=== PATIENT | male | born 1945 | race Caucasian/White ===

== ENCOUNTER 2016-06-26 11:25 | Outpatient (CLI) | payer MEDICARE, OTHER ==
--- NOTE | 2016-06-26 14:28 | Diagnostic Imaging Report ---
MANDY STARKEY [facility] [address] [facility] [address] [address] Report Submission Date: Jun 26, 2016 12:51:28 PM CDT Patient Study Name: ANYA CHAMPION Date: Jun 26, 2016 11:40:19 AM CDT Modality Type: CR Gender: M Description: UPPER EXTREMITY : 47 Institution: [facility] Physician: MANDY STARKEY Right hand 3 views History: Pain and swelling after fall Findings: A nondisplaced oblique mid 4th metacarpal shaft fracture is observed. A mildly displaced longitudinally oriented fracture extends from the mid 5th metacarpal shaft through the ulnar aspect of the 5th metacarpal head. Diffuse osteopenia is observed. Impression: Nondisplaced 4th metacarpal shaft fracture and mildly displaced mid to distal 5th metacarpal fracture. Electronically signed on Jun 26, 2016 12:51:28 PM CDT by: Josh HINOJOSA
--- NOTE | 2016-06-26 14:29 | Diagnostic Imaging Report ---
MANDY STARKEY [facility] [address] [facility] [address] [address] Report Submission Date: Jun 26, 2016 12:48:53 PM CDT Patient Study Name: ANYA CHAMPION Date: Jun 26, 2016 11:50:03 AM CDT Modality Type: CR Gender: M Description: LOWER EXTREMITY : 47 Institution: [facility] Physician: MANDY STARKEY Right foot 3 views History: Lateral pain and swelling after fall Findings: A minimally distracted intra-articular 5th metatarsal base fracture is present. Diffuse right foot soft tissue swelling, osteopenia, and dorsal and plantar heel spurs are present. Impression: Distracted 5th metatarsal base fracture. Electronically signed on Jun 26, 2016 12:48:53 PM CDT by: Josh HINOJOSA
== END 2016-06-26 11:26 ==
LOC: RAD 11:25
PROVIDERS: ATTEND Family Medicine
DX: M79.641 Pain in right hand (principal); M79.671 Pain in right foot
CPT/HCPCS: 73130; 73630

== ENCOUNTER 2017-04-16 13:57 | Outpatient (CLI) | payer MEDICARE, OTHER ==
--- NOTE | 2017-04-16 22:25 | Diagnostic Imaging Report ---
MANDY STARKEY [facility] [address] [facility] [address] 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 History: COUGH (Hx) / COUGH (DICOM Hx) / COUGH (Pt comments) Comparison exam: None provided. Findings: PA lateral chest demonstrate a prominent cardiac and mediastinal silhouette. Vascular calcifications involving the aortic arch. Mild right hilar haziness/fullness. No peripheral infiltrate. No blunting of the costophrenic margins. Osseous structures are appropriate for age. Impression: Mild right hilar fullness - infiltrate versus vascular congestion. No effusion. Electronically signed on Apr 16, 2017 2:32:09 PM MAILROOM MESSENGER by: Brian HINOJOSA
== END 2017-04-16 14:00 ==
LOC: RAD 13:57
PROVIDERS: ATTEND Family Medicine
DX: R05 Cough (principal)
CPT/HCPCS: 71020

== ENCOUNTER 2017-04-19 09:16 | Outpatient (CLI) | payer MEDICARE, OTHER ==
[2017-04-19 10:39] LABS: eGFR (African) > 60; eGFR (Non-African) > 60
--- NOTE | 2017-04-19 19:30 | Diagnostic Imaging Report ---
MANDY STARKEY [facility] [address] [facility] [address] [place], [place]. 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 History: CXR, COUGH SINCE AUGUST OF 2016, WORSENING IN THE LAST MONTH, PRIOR CXR FROM 04/16/17 (Hx) / COUGH (DICOM Hx) / COUGH (Pt comments) Comparison exam: 16 April 2017 Findings: PA lateral chest demonstrate a prominent cardiac and mediastinal silhouette. Vascular calcifications involving the aortic arch. Mild right hilar fullness without change. On lateral view there is some new mild indistinctness involving the left diaphragmatic margin. Osseous structures are appropriate for age. Impression: New mild left lung base hazy infiltrate. No gross effusion. Follow up as clinically warranted. Electronically signed on Apr 19, 2017 10:36:54 AM TRUCK DRIVING INSTRUCTOR by: Brian HINOJOSA
--- NOTE | 2017-04-22 07:12 | Diagnostic Imaging Report ---
MANDY STARKEY [facility] [address] [facility] [address] [place], [place]. 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 Bilateral pleural effusions with adjacent mild compressive atelectasis. Patchy parenchymal infiltrates involving the remaining aerated lung glaser. Mild interstitial fullness involving the regions of the fissures. No evidence for spiculated lesion or suspicious nodular density. Anterior mediastinum and chitra demonstrate scattered lymph nodes - largest appear to be within the prevascular and free carinal regions measuring 1 to 1.5 cm diameter. Thoracic aorta demonstrates peripheral atherosclerotic disease. No aneurysm. Cardiac silhouette not enlarged. No pericardial effusion. Vascular calcifications. Probable left and right thyroid lobe cysts. No other lower neck gross abnormalities. Gallstones layering within the gallbladder. No other acute upper abdominal abnormalites. Degenerative spurring of the thoracic vertebral bodies. Articular degenerative changes. Impression: Bilateral effusions associated with patchy interstitial infiltrates. Mildly prominent mediastinal lymph nodes. No evidence for thoracic aortic aneurysm or dissection. Probable thyroid lobe cysts. Gallstones. Electronically signed on Apr 20, 2017 8:52:00 AM LOADER HELPER SORTING YARD by: Brian HINOJOSA
== END 2017-04-19 09:17 ==
LOC: RAD 09:16
PROVIDERS: ATTEND Family Medicine
DX: R05 Cough (principal)
CPT/HCPCS: 36415; 71020; 71270; 82565; Q9967

== ENCOUNTER 2017-05-21 10:30 | Outpatient (CLI) | payer MEDICARE, OTHER | END 2017-05-21 10:31 | LOC: CARD 10:30 | PROVIDERS: ATTEND Internal Medicine Cardiovascular Disease | DX: I35.0 Nonrheumatic aortic (valve) stenosis (principal); R06.00 Dyspnea, unspecified; E78.5 Hyperlipidemia, unspecified; I10 Essential (primary) hypertension; E11.9 Type 2 diabetes mellitus without complications; E66.9 Obesity, unspecified; G47.30 Sleep apnea, unspecified | CPT/HCPCS: G0463 ==

== ENCOUNTER 2017-06-11 15:18 | Outpatient (CLI) | payer MEDICARE, OTHER ==
--- NOTE | 2017-06-11 15:58 | Diagnostic Imaging Report ---
MANDY STARKEY [facility] [address] [facility] [address] Report Submission Date: Jun 11, 2017 3:45:10 PM CDT Patient Study Name: ANYA CHAMPION Date: Jun 11, 2017 3:23:10 PM CDT Modality Type: DX Gender: M Description: CHEST : 47 Institution: [facility] Physician: MANDY STARKEY Examination: PA and lateral chest. History: Evaluate lung glaser. DYSPNEA, COUGH (Hx) Comparison exam: None provided. Findings: PA lateral chest demonstrate a normal cardiac and mediastinal silhouette. Vascular calcifications involving the aortic arch. Elevated right hemidiaphragm. No focal infiltrate. Anterior linear scarring. No blunting of the costophrenic margins. Osseous structures are appropriate for age. Impression: No acute appearing pulmonary process. Electronically signed on Jun 11, 2017 3:45:10 PM CDT by: Brian HINOJOSA
== END 2017-06-11 15:20 ==
LOC: RAD 15:18
PROVIDERS: ATTEND Family Medicine
DX: R06.09 Other forms of dyspnea (principal)
CPT/HCPCS: 71046

== ENCOUNTER 2017-07-02 09:34 | Outpatient (CLI) | payer MEDICARE, OTHER ==
[2017-07-02 10:34] LABS: eGFR (Non-African) > 60
== END 2017-07-02 09:35 ==
LOC: LAB 09:34
PROVIDERS: ATTEND Family Medicine
DX: R60.0 Localized edema (principal)
CPT/HCPCS: 36415; 80048

== ENCOUNTER 2017-07-02 11:14 | Outpatient (CLI) | payer MEDICARE, OTHER | END 2017-07-02 11:15 | LOC: CARD 11:14 | PROVIDERS: ATTEND Internal Medicine Cardiovascular Disease | DX: I50.9 Heart failure, unspecified (principal); I35.0 Nonrheumatic aortic (valve) stenosis; E78.5 Hyperlipidemia, unspecified; I10 Essential (primary) hypertension; E11.9 Type 2 diabetes mellitus without complications; E66.9 Obesity, unspecified; G47.33 Obstructive sleep apnea (adult) (pediatric) | CPT/HCPCS: G0463 ==

== ENCOUNTER 2017-07-16 10:04 | Outpatient (CLI) | payer MEDICARE, OTHER ==
[2017-07-16 12:21] LABS: eGFR (African) > 60; eGFR (Non-African) > 60
== END 2017-07-16 10:06 ==
LOC: CARD 10:04
PROVIDERS: ATTEND Internal Medicine Cardiovascular Disease
DX: I50.9 Heart failure, unspecified (principal); I35.0 Nonrheumatic aortic (valve) stenosis; E78.5 Hyperlipidemia, unspecified; I10 Essential (primary) hypertension; E11.9 Type 2 diabetes mellitus without complications; E66.9 Obesity, unspecified; G47.30 Sleep apnea, unspecified; Z51.81 Encounter for therapeutic drug level monitoring
CPT/HCPCS: 36415; 80048; G0463

== ENCOUNTER 2017-10-15 12:16 | Outpatient (CLI) | payer MEDICARE, OTHER | END 2017-10-15 12:18 | LOC: CARD 12:16 | PROVIDERS: ATTEND Internal Medicine Cardiovascular Disease | DX: I35.0 Nonrheumatic aortic (valve) stenosis (principal); I10 Essential (primary) hypertension; E78.5 Hyperlipidemia, unspecified; E11.9 Type 2 diabetes mellitus without complications; E66.9 Obesity, unspecified; G47.30 Sleep apnea, unspecified; Z79.899 Other long term (current) drug therapy; I50.1 Left ventricular failure, unspecified | CPT/HCPCS: G0463 ==

== ENCOUNTER 2017-11-12 09:51 | Outpatient (CLI) | payer MEDICARE, OTHER | END 2017-11-12 09:53 | LOC: CARD 09:51 | PROVIDERS: ATTEND Internal Medicine Cardiovascular Disease | DX: I35.0 Nonrheumatic aortic (valve) stenosis (principal); I10 Essential (primary) hypertension; E78.5 Hyperlipidemia, unspecified; E11.9 Type 2 diabetes mellitus without complications; E66.9 Obesity, unspecified; G47.30 Sleep apnea, unspecified; Z79.899 Other long term (current) drug therapy | CPT/HCPCS: G0463 ==

== ENCOUNTER 2017-11-28 10:42 | Outpatient (CLI) | payer MEDICARE, OTHER ==
--- NOTE | 2017-11-28 19:53 | Diagnostic Imaging Report ---
MANDY STARKEY [facility] [address] [facility] [address] [address] Report Submission Date: Nov 28, 2017 11:21:20 AM CDT Patient Study Name: ANYA CHAMPION Date: Nov 28, 2017 10:56:45 AM CDT Modality Type: DX Gender: M Description: SHOULDER : 47 Institution: [facility] Physician: MANDY STARKEY Examination: Plain film left shoulder History: LT SHOULDER, CHRONIC PAIN IN LEFT SHOULDER, WORSENING IN LAST FEW MONTHS. NO KNOWN RECENT INJURY (Hx) Comparison exams: None provided Findings: 3 views of the left shoulder demonstrate normal cortical margins. No evidence for fracture or dislocation. No soft tissue abnormality Impression: No acute osseous process. Electronically signed on Nov 28, 2017 11:21:20 AM CDT by: Brian HINOJOSA
== END 2017-11-28 10:43 ==
LOC: RAD 10:42
PROVIDERS: ATTEND Family Medicine
DX: M25.512 Pain in left shoulder (principal)
CPT/HCPCS: 73030

== ENCOUNTER 2018-11-20 13:46 | Outpatient (CLI) | payer MEDICARE, OTHER ==
--- NOTE | 2018-11-27 09:20 | Diagnostic Imaging Report ---
MANDY STARKEY [facility] [address] [address] Report Submission Date: Nov 20, 2018 2:34:59 PM CDT Patient Study Name: ANYA CHAMPION Date: Nov 20, 2018 1:46:34 PM CDT Modality Type: DX Gender: M Description: ELBOW 2 VIEWS : 47 Institution: [facility] Physician: MANDY STARKEY Examination: Plain film right elbow History: SWELLING X2 WEEKS Comparison exams: None provided Findings: 2 views of the right elbow demonstrate normal cortical margins. No fracture. No dislocation. Radial head is within normal limits. Olecranon spur. No joint effusion. Anterior vascular calcifications. Significant soft tissue fullness over the olecranon. Impression: No acute appearing osseous abnormality. Significant posterior soft tissue thickening/swelling. Correlate clinically. Electronically signed on Nov 20, 2018 2:34:59 PM CDT by: Brian HINOJOSA
== END 2018-11-20 13:48 ==
LOC: RAD 13:46
PROVIDERS: ATTEND Family Medicine
DX: M70.21 Olecranon bursitis, right elbow (principal)
CPT/HCPCS: 73070

== ENCOUNTER 2019-01-29 10:11 | Emergency (ER) | payer MEDICARE, OTHER ==
--- NOTE | 2019-01-29 10:19 | ED Physician Documentation ---
General Adult - HISTORIAN Historian: patient - HPI Stated Complaint: pain in left foot and ankle after fall Saturday Chief Complaint: Lower Extremity Injury Onset: days ago (6) Timing: worse Severity: moderate Further Comments: yes (He states he stepped back off a chair and fell and he has had increasing pain and swelling in the ankle/foot since. he is taking Tylenol with no pain relief. He has some decrease in sensation on the toes. He is having a hard time with weigh bearing) - ROS CONST: no problems - PAST HX Past History: hypertension Other History: diabetes Type 2 Immunizations: tetanus Allergies/Adverse Reactions: Allergies Allergy/AdvReac Type Severity Reaction Status Date / Time cephalexin [Cephalexin] Allergy Mild rash Verified 01/29/19 10:41 Penicillins Allergy Verified 01/29/19 10:41 - SOCIAL HX Smoking History: non-smoker Alcohol Use: none Drug Use: none - FAMILY HX Family History: No - REVIEWED ASSESSMENTS Nursing Assessment Reviewed: Yes Vitals Reviewed: Yes Progress - Progress Progress: Discussed case with Dr Rola VALENTE General Adult Physical Exam - PHYSICAL EXAM GENERAL APPEARANCE: no distress EENT: eye inspection normal, no signs of dehydration NECK: normal inspection RESPIRATORY: no resp distress, chest non-tender, breath sounds normal CVS: reg rate & rhythm, heart sounds normal, equal pulses ABDOMEN: soft BACK: normal inspection SKIN: warm/dry EXTREMITIES: other (left foot and ankle with swelling and significant bruising. Pulses faint in foot swelling and bruise prevent appropriate cap refill. No feeling with palpaiton of 5,4,3 toe on left foot - he has limited ROM although he can move all toes. ) NEURO: oriented X3 Discharge Clincal Impression: Phalanx fracture, foot Qualifiers: Encounter type: initial encounter Toe: lesser toe Fracture type: closed Phalanx: proximal Fracture alignment: displaced Laterality: left Qualified Code(s): S92.512A - Displaced fracture of proximal phalanx of left lesser toe(s), initial encounter for closed fracture Referrals: Juanita Ye MD [Primary Care Provider] - 2 Days Comments: 1. Elevate and ice for comfort 2. Post op shoe whenever up 3. Bactrim DS take 1 by mouth every 12 hours as needed for pain 4. Tramadol 50 mg take 1 by mouth every 8 hours as needed for pain 5. See Dr Canela as scheduled 6. Return to ER for any increased concerns Condition: Stable Disposition: 01 HOME, SELF-CARE Decision to Admit: NO Date of Decison to Admit: 01/29/19 Decision Time: 12:19
[2019-01-29 10:31] VITALS: BP 148/73
--- NOTE | 2019-01-29 11:29 | Diagnostic Imaging Report ---
PATIENT MR#: [id number] PATIENT PATIENT NAME: ANYA CHAMPION DATE OF : 1945 REFERRING PHYSICIAN: Blanka Justin EXAM DATE: 01/29/2019 ACCESSION NUMBER: [id number] EXAM DESCRIPTION: FOOT 3 VIEWS OR MORE Exam: Left foot 3 views Indication: REASON: PAIN AND SWELLING HISORY: PT STEPPED DOWN OFF A BED HE WAS STANDING ON AND HIT HI S LEFT 5TH METATARSAL ON THE UNDERSIDE OF THE BED. PAIN AND SWELLING HAPPENED INSTANTLY. INCIDENT X6 DAYS AGO (H x) / Note time : 01/29/2019 11:16:15 AM User : Varsha montes REASON: PAIN AND SWELLING HISORY: PT STEPPED DOWN OFF A BED HE WAS STANDING ON AND HIT HIS LEFT 5TH METATARSAL ON THE UNDERSIDE OF THE BED. PAIN AND SWELLING HAPPENED INSTANTLY. INCIDENT X6 DAYS AGO (DICOM Hx) (DICOM Hx) Findings: In the AP view, a minimally displaced fracture of the lateral base of the fifth toe proximal phalanx is suggested. Otherwise unremarkable. Impression: Minimally displaced fracture of the base of the 5th toe proximal phalanx lateral aspect Read by: Dr. Rylan Fair Transcribed by: Transcribed Date: Electronically signed by: Dr. Rylan Fair Date signed: 01/29/2019 11:28:01 AM
--- NOTE | 2019-01-29 11:29 | Diagnostic Imaging Report ---
PATIENT MR#: [id number] PATIENT PATIENT NAME: ANYA CHAMPION DATE OF : 1945 REFERRING PHYSICIAN: Blanka Justin EXAM DATE: 01/29/2019 ACCESSION NUMBER: [id number] EXAM DESCRIPTION: ANKLE 3 VIEWS OR MORE Exam: Left ankle 3 views Indication: REASON: PAIN AND SWELLING HISORY: PT STEPPED DOWN OFF A BED HE WAS STANDING ON AND HIT HI S LEFT 5TH METATARSAL ON THE UNDERSIDE OF THE BED. PAIN AND SWELLING HAPPENED INSTANTLY. INCIDENT X6 DAYS AGO (H x) / Note time : 01/29/2019 11:16:08 AM User : Varsha montes REASON: PAIN AND SWELLING HISORY: PT STEPPED DOWN OFF A BED HE WAS STANDING ON AND HIT HIS LEFT 5TH METATARSAL ON THE UNDERSIDE OF THE BED. PAIN AND SWELLING HAPPENED INSTANTLY. INCIDENT X6 DAYS AGO (DICOM Hx) (DICOM Hx) Findings: No acute fracture, subluxation, dislocation or other osseous abnormality is identified. If clinical symptoms persist follow up examination may be warranted to exclude an occult process. Impression: No acute osseous abnormality. Read by: Dr. Rylan Fair Transcribed by: Transcribed Date: Electronically signed by: Dr. Rylan Fair Date signed: 01/29/2019 11:28:01 AM
--- NOTE | 2019-01-29 11:30 | Diagnostic Imaging Report ---
PATIENT MR#: [id number] PATIENT PATIENT NAME: ANYA CHAMPION DATE OF : 1945 REFERRING PHYSICIAN: Blanka Justin EXAM DATE: 01/29/2019 ACCESSION NUMBER: [id number] EXAM DESCRIPTION: TIBIA FIBULA 2 VIEW Exam: Left tibia fibula 2 views Indication: REASON: PAIN AND SWELLING HISORY: PT STEPPED DOWN OFF A BED HE WAS STANDING ON AND HIT HI S LEFT 5TH METATARSAL ON THE UNDERSIDE OF THE BED. PAIN AND SWELLING HAPPENED INSTANTLY. INCIDENT X6 DAYS AGO (H x) / Note time : 01/29/2019 11:15:57 AM User : Varsha montes REASON: PAIN AND SWELLING HISORY: PT STEPPED DOWN OFF A BED HE WAS STANDING ON AND HIT HIS LEFT 5TH METATARSAL ON THE UNDERSIDE OF THE BED. PAIN AND SWELLING HAPPENED INSTANTLY. INCIDENT X6 DAYS AGO (DICOM Hx) (DICOM Hx) Findings: No acute fracture, subluxation, dislocation or other osseous abnormality is identified. If clinical symptoms persist follow up examination may be warranted to exclude an occult process. Impression: No acute osseous abnormality. Read by: Dr. Rylan Fair Transcribed by: Transcribed Date: Electronically signed by: Dr. Rylan Fair Date signed: 01/29/2019 11:29:00 AM
[2019-01-29] MEDS ORDERED: KETOROLAC TROMETHAMINE 60 MG/2 ML VIAL IM ONE ×2 (11:55→11:57)
[2019-01-29] MEDS ORDERED: DIPH,PERTUSS(ACELL),TET VAC/PF 0.5 ML DISP.SYRIN IM ONE (12:25)
== END 2019-01-29 12:43 | disposition home or self-care (01) ==
LOC: ED 10:11
DX: S92.512A Displaced fracture of proximal phalanx of left lesser toe(s), initial encounter for closed fracture (principal); W10.8XXA Fall (on) (from) other stairs and steps, initial encounter
CPT/HCPCS: 73590; 73610; 73630; 96372; 99282; 99284; J1885; J7030

== ENCOUNTER 2019-03-02 13:12 | Outpatient (CLI) | payer MEDICARE, OTHER ==
--- NOTE | 2019-03-03 17:03 | OP Clinic Progress Note ---
DATE OF VISIT: 03/02/2019 SUBJECTIVE: John is a 73-year-old male presenting to clinic today for follow- up of a left fifth toe proximal phalanx fracture nondisplaced that occurred I believe about 5 weeks ago now. The patient stubbed it on a bedframe and had a 2x6 post that went right between his fourth and fifth toes causing a small open lesion previously as well. The patient has been treating that I believe and the patient was encouraged last time to be jareth taping the fourth and fifth toes together. He presented today in slippers but states that usually he is wearing his appropriate shoe. The patient does not admit to any other issues and states that the pain is virtually gone in that left fifth toe. He does present, however, short of breath and with an incredibly low oxygen saturation. He sometimes uses oxygen at home as needed here and there but presented today stating that he has a cold and is wearing a mask. He is having a hard time breathing and cannot take a deep breath well without coughing viciously. The patient otherwise does not admit to any fevers, chills, nausea, vomiting, shortness of breath or chest pain. He states that he is just having trouble breathing in his chest area. The patient is a type 2 diabetic male with significant peripheral edema in the left lower extremity and he is concerned that he has cellulitis in the left leg as well. OBJECTIVE: Vitals: Temperature 98.2 degrees Fahrenheit, heart rate 89, respiration rate 18, blood pressure 129/92. O2 saturation is 77% on room air initially and after putting him on 3 liters per nasal cannula for a little while he was then at 90% on 3 liters. Vascular: Palpable DP and PT pulses, left foot. Capillary refill time is less than 3 seconds to the toes of the left foot. There is pretty moderate to severe edema noted still in the left lower extremity. Dermatologic: The left foot is absent of any ecchymosis or real erythema. There is mild slight pink discoloration in the left lower leg in different areas as well as obvious xerotic skin with what appears to be venous insufficiency trying to break through the dry skin in several areas. There is no current drainage and nothing is open at this time. There are no other skin abnormalities noted left foot or leg. Musculoskeletal: There is pain on palpation that is only about 1/10 of the left fifth toe proximal phalanx. The patient otherwise states he is feeling fine. There were no other gross abnormalities noted today. The left ankle was not tested today as he has a history of a medial malleolus fracture mentioned at his previous exam. We did not check the retro malleolar fibular area but we can check that next time. He did not complain of any pain or issues at that location at this time. Neurologic: Intact to the toes, left foot. ASSESSMENT AND PLAN: 1. Type 2 diabetes mellitus with complication, unspecified whether termite inspector insulin use. 2. Closed fracture of the phalanx of the left fifth toe, subsequent encounter; S92.502A. 3. Peripheral edema, R60.9. The left fifth toe was evaluated clinically and is essentially free of any pain or problems for the patient at this time or deformity. The patient refuses any sort of x-rays to confirm that it is looking good on x-rays which I am fine with. The left lower extremity: Slight pink discoloration and the patients concern for cellulitis was discussed today and I told him that I do not believe he needs any sort of antibiotics but rather he needs compression stockings. The patient states that he has them but has a hard time using them and we discussed ways to make it a little bit easier which he says he is already doing. We encouraged him to be using 2 or 3 layers of SALLIE wrap instead to at least help keep some compression on it if he cannot do compression stockings. He was also encouraged to do lotion as he has quite the amount of xerotic skin on the left lower leg which he understands he needs to be doing better with also. We discussed in depth in detail the importance of going to the emergency room to have x-rays done and be evaluated for possible pneumonia. The patient is quite short of breath with a low oxygen saturation. The patient did not like the idea of going but agreed to go to the ER and we were able to take him to the ER ourselves to get checked in there to be evaluated to the proper extent that he needed to be. The patient did not have any x-rays done today and we will plan on a regular return to clinic visit as needed. We will check on his left lower extremity to make sure that he is applying lotion and we will make sure that we can check on his diabetic feet and trim his nails as needed in about 2 months from now. The patient can call and let us know when he is ready to come in. The patient was sent to the ER and they will take care of him there. David Canela D.P.M. [place] Job#: [id number] MTDD
== END 2019-03-02 13:42 ==
LOC: POD 13:12
PROVIDERS: ATTEND Podiatrist Foot & Ankle Surgery
DX: E11.8 Type 2 diabetes mellitus with unspecified complications (principal); S92.502A Displaced unspecified fracture of left lesser toe(s), initial encounter for closed fracture; W22.03XA Walked into furniture, initial encounter
CPT/HCPCS: 99213; G0463; A4554

== ENCOUNTER 2019-03-02 14:10 | Inpatient (IN) | payer MEDICARE, OTHER ==
--- NOTE | 2019-03-02 14:18 | ED Physician Documentation ---
Dyspnea - HISTORIAN Historian: patient - HPI Stated Complaint: shortness of air Chief Complaint: Dyspnea Onset: days ago (4) Duration: continues in ED Initiating Event: upper respiratory illness (he has had a "cold" for four days and has had increased shortness of air. ) Severity: mild Exacerbated By: change in position, coughing Associated Symptoms: fever, productive cough. denies: chest pain, chest discomfort Further Comments: yes (He states four days ago he started with a "cold" he states that has continued and he has had some increased shortness of air. Fever he feels like he has had at home. HE denies a rash . He denies any sick contacts. He has not checked his blood sugars more than usual.) - ROS CONST: no problems MS/SKIN/LYMPH: none - PAST HX Lung Disease: COPD Cardiac Disease: none PE Risk Factors: hypertension Surgeries/Procedures: none Other History: diabetes Type 2 Immunizations: UTD Allergies/Adverse Reactions: Allergies Allergy/AdvReac Type Severity Reaction Status Date / Time cephalexin [Cephalexin] Allergy Mild rash Verified 03/02/19 14:25 Penicillins Allergy Verified 03/02/19 14:25 Home Medications: Ambulatory Orders Medication Instructions Recorded Aspirin EC [Ecotrin] 81 mg PO DAILY 03/02/19 Carvedilol [Coreg] 25 mg PO BID 03/02/19 Clopidogrel Bisulfate [Plavix] 75 mg PO DAILY 03/02/19 [place]-3/Dha/Epa/Fish Oil [Fish Oil] 2,000 mg PO DAILY 03/02/19 amLODIPine BESYLATE [Norvasc] 2.5 mg PO 0900 03/02/19 - SOCIAL HX Smoking History: non-smoker Alcohol Use: none Drug Use: none - FAMILY HX Family History: none - VITAL SIGNS Vital Signs: Vital Signs Temp Pulse Resp BP Pulse Ox 148/73 01/29/19 12:43 - REVIEWED ASSESSMENTS Nursing Assessment Reviewed: Yes Vitals Reviewed: Yes Dyspnea Physical Exam - EXAM General Appearance: no acute distress, alert EENT: eye inspection normal, no signs of dehydration Neck: nml inspection Respiratory: no resp. distress, wheezes, rhonchi CVS: reg. rate & rhythm Abdomen: non-tender Skin: color nml, no rash Extremities: non-tender Neuro/Psych: oriented x3 Discharge Clincal Impression: Pneumonia Qualifiers: Pneumonia type: due to unspecified organism Laterality: left Lung location: unspecified part of lung Qualified Code(s): J18.9 - Pneumonia, unspecified organism Condition: Fair Disposition: 09 ADMITTED INPATIENT Decision to Admit: [id number] Date of Decison to Admit: 03/02/19 Decision Time: 15:30
[2019-03-02] MEDS ORDERED: IPRATROPIUM/ALBUTEROL SULFATE 3 ML AMPUL.NEB NEB ONE ×2 (14:19→22:27)
[2019-03-02 14:28] LABS: BASOPHILS % 0.5 % (0.0-1.5); NEUTROPHILS # 3.3 # k/uL (1.4-7.7)
--- NOTE | 2019-03-02 14:39 | Diagnostic Imaging Report ---
PATIENT MR#: [id number] PATIENT PATIENT NAME: ANYA CHAMPION DATE OF : 1945 REFERRING PHYSICIAN: Blanka Justin EXAM DATE: 03/02/2019 ACCESSION NUMBER: [id number] EXAM DESCRIPTION: CHEST 1VIEW Exam: AP chest. History: Cough. The examination is compared to study dated June 11, 2017. Patchy left perihilar infiltrates are noted. No joe consolidation or effusions are seen. Heart an d mediastinal contour are normal. No bony abnormalities are seen. Impression: Patchy left perihilar infiltrates. Read by: Dr. Vernon Ozuna Transcribed by: Transcribed Date: Electronically signed by: Dr. Vernon Ozuna Date signed: 03/02/2019 2:38:40 PM
[2019-03-02 14:47] LABS: eGFR (Non-African) > 60
[2019-03-02] MEDS ORDERED: methylPREDNISolone SOD SUCC 125 MG/2 ML VIAL ONE (15:08)
[2019-03-02] MEDS ORDERED: AZITHROMYCIN 500 MG VIAL IV ONE (15:09)
[2019-03-02] MEDS ORDERED: 0.9 % SODIUM CHLORIDE 100 ML IV ONE (15:09)
[2019-03-02] MEDS ORDERED: methylPREDNISolone SOD SUCC 125 MG/2 ML VIAL IV ONE (15:10)
[2019-03-02] MEDS ORDERED: AZITHROMYCIN 500 MG in 0.9 % SODIUM CHLORIDE 250 ML IV ONE (15:10)
[2019-03-02] MEDS: IPRATROPIUM/ALBUTEROL SULFATE 3 ML AMPUL.NEB NEB ONE (15:29)
--- NOTE | 2019-03-02 16:07 | History and Physical Report ---
History of Present Illnes - History of Present Illness Reason for Visit: Shortness of breath History of Present Illness: Patient noted feeling a URI coming on 2 weeks ago in [place]. About 4 days ago began with worsening cough and congestion. Very weak and fatigued. No fever, ST, ear pain. Came to ER today and noted to have 79% RA SAT and found to have a left perihilar pneumonia. He has some home O2 he uses as needed. 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: Migraine Musculoskeletal: Other (hemidiaphragm paralysis) Renal/: Other (kidney stones) Endocrine: Diabetes, obesity Dermatology: Psoriasis - Past Surgical History Past Surgical History: Appendectomy, Other (TAVR 05/27) - Past Family History Mother Family History: DM, Father Family History: CAD, - Past Social History Smoke: No Occupation: disabled Alcohol: None Lives: With Family - Health Maintenance Health Maintenance: Influenza Vaccine, Pneumococcal Vaccine Influenza Vaccine: Current for this Influenza Season Pneumonia Vaccine: Yes Resuscitation Status: Resusciation Status Resuscitation Status Full Code Review of Systems - Review of Systems Constitutional: Weakness. negative: Fever Eyes: negative: pain ENT: Nose Discharge, Nose Congestion. negative: Mouth Pain Respiratory: Cough, Shortness of Breath Cardiovascular: negative: Chest Pain Gastrointestinal: negative: Nausea, Vomiting, Abdominal Pain Genitourinary: negative: Dysuria Musculoskeletal: Back Pain Skin: negative: Rash Neurological: Weakness - Medications/Allergies Allergies/Adverse Reactions: Allergies Allergy/AdvReac Type Severity Reaction Status Date / Time cephalexin [Cephalexin] Allergy Mild rash Verified 03/02/19 14:25 Penicillins Allergy Verified 03/02/19 14:25 Home Medications: Home Medications Aspirin EC [Ecotrin] 81 mg PO DAILY 03/02/19 Carvedilol [Coreg] 25 mg PO BID 03/02/19 Clopidogrel Bisulfate [Plavix] 75 mg PO DAILY 03/02/19 [place]-3/Dha/Epa/Fish Oil [Fish Oil] 2,000 mg PO DAILY 03/02/19 amLODIPine BESYLATE [Norvasc] 2.5 mg PO 0900 03/02/19 Current Inpatient Medications: Current Inpatient Medications Albuterol/Ipratropium (Duoneb) 3 ml NEB NOW ONE Stop: 03/02/19 15:04 Last Admin: 03/02/19 15:29 Dose: 3 ml Albuterol/Ipratropium (Duoneb) 3 ml NEB Q4 [facility] Stop: 04/01/19 16:59 Amlodipine Besylate (Norvasc) 2.5 mg PO 0900 [facility] Stop: 04/02/19 08:59 Aspirin (Ecotrin) 81 mg PO DAILY [facility] Stop: 04/02/19 08:59 Clopidogrel Bisulfate (Plavix) 75 mg PO DAILY [facility] Stop: 04/02/19 08:59 Enoxaparin Sodium (Lovenox) 40 mg SQ DAILY [facility] Stop: 03/17/19 08:59 Furosemide (Lasix) 40 mg PO BID [facility] Stop: 04/01/19 20:59 Gabapentin (Neurontin) 300 mg PO TID [facility] Stop: 04/01/19 20:59 Azithromycin 500 mg/ Sodium (Chloride) 250 mls @ 250 mls/hr IV NOW ONE Stop: 03/02/19 16:09 Last Admin: 03/02/19 15:22 Dose: 250 mls/hr Azithromycin 500 mg/ Sodium (Chloride) 250 mls @ 250 mls/hr IV Q24H [facility] Stop: 03/07/19 14:59 Levofloxacin (Levaquin) 750 mg in 150 mls @ 100 mls/hr IV Q24H [facility] Stop: 04/01/19 15:44 Isosorbide Mononitrate (Imdur) 30 mg PO DAILY [facility] Stop: 04/02/19 08:59 Methylprednisolone Sodium Succinate (Solu-Medrol) 125 mg IV NOW ONE Stop: 03/02/19 15:11 Last Admin: 03/02/19 15:22 Dose: 125 mg Miscellaneous (Chem Sticks) 1 each MC CHEMQID [facility] Stop: 04/01/19 16:59 Miscellaneous (Atorvastatin Calcium [Lipitor]) 80 mg PO DAILY [facility] Stop: 04/02/19 08:59 Miscellaneous (Lisinopril [Zestril]) 40 mg PO DAILY [facility] Stop: 04/02/19 08:59 Miscellaneous (Metformin Hcl [Glucophage]) 1,000 mg PO BID [facility] Stop: 04/01/19 20:59 Pantoprazole Sodium (Protonix) 40 mg PO DAILY [facility] Stop: 04/02/19 08:59 Exam - Exam Vital Signs: Vital Signs (72 hours) 03/02/19 03/02/19 03/02/19 14:15 14:18 15:18 Temperature 98.9 F Pulse Rate 85 84 Pulse Rate [ 86 Pulse ox] Respiratory 26 H Rate Blood Pressure 148/89 [Left Arm] O2 Sat by Pulse 86 L Oximetry 03/02/19 16:01 Temperature 98.7 F Pulse Rate Pulse Rate [ 84 Pulse ox] Respiratory 26 H Rate Blood Pressure 134/80 [Left Arm] O2 Sat by Pulse 92 Oximetry General: Alert, Oriented to Person, Oriented to Place, Oriented to Time, Cooperative, No acute distress HEENT: Atraumatic, PERRLA, EOMI, Mouth Mucous membr. moist/[place] Neck: Normal Range of Motion Lungs: Rhonchi Cardiovascular: Regular rate Abdomen: Normal bowel sounds, Soft, No tenderness Integumentary: Normal Extremities: No edema Neurological: Generalized Weakness Psych/Mental Status: Mental status NL, Mood NL, Appropriate Affect, Intact Judgment - Laboratory Results Laboratory Results: Laboratory Results 03/02/19 03/02/19 14:26 14:26 WBC 6.00 RBC 4.52 Hgb 13.1 Hct 38.9 MCV 86.0 MCH 29.1 MCHC 33.8 RDW 13.9 Plt Count 141 Neut % (Auto) 54.6 Lymph % (Auto) 17.1 [place] % (Auto) 7.9 Eos % (Auto) 19.9 H Baso % (Auto) 0.5 Neut # (Auto) 3.3 Lymph # (Auto) 1.0 [place] # (Auto) 0.5 Eos # (Auto) 1.2 H Baso # (Auto) 0.0 Sodium 147 H Potassium 5.1 Chloride 102 Carbon Dioxide > 35 H BUN 19 Creatinine 0.97 Est GFR ( Amer) > 60 Est GFR (Non-Af Amer) > 60 Glucose 106 Calcium 9.8 Total Bilirubin 1.0 AST 49 H ALT 20 Alkaline Phosphatase 104 NT-Pro-B Natriuret Pep 350.4 H Total Protein 8.2 Albumin 4.7 Assessment/Plan - Assessment/Plan (1) Pneumonia Status: Acute Current Visit: Yes Qualifiers: Pneumonia type: due to unspecified organism Laterality: left Lung location: unspecified part of lung Qualified Code(s): J18.9 - Pneumonia, unspecified organism Plan: Blood cultures pending. Admit for IV levaquin and zithromax. O2 to keep SAT's > 90%. Duonebs. Poor appetite so will do IVF hydration gently. Lovenox and SCD's for DVT prevention. (2) Hypoxia Status: Acute Current Visit: Yes (3) Cardiomyopathy Status: Chronic Current Visit: No Qualifiers: Cardiomyopathy type: unspecified Qualified Code(s): I42.9 - Cardiomyopathy, unspecified Plan: EF better after TAVR. Still will do gentle IVF. (4) Diabetes mellitus Status: Chronic Current Visit: No Qualifiers: Diabetes mellitus type: type 2 Diabetes mellitus terminal make up operator insulin use: with terminal make up operator use Diabetes mellitus complication status: with other specified complication Qualified Code(s): E11.69 - Type 2 diabetes mellitus with other specified complication; Z79.4 - [facility] (current) use of insulin Plan: Monitor BS. Continue home meds. (5) Hypertension Status: Acute Current Visit: Yes VTE Assessment - RISK FACTOR SCORE VTE RISK FACTOR SCORES: AGE OVER 60 YEARS, ACUTE INFECTION OTHER THEN SEPSIS - RISK VTE MODERATE RISK: SCORE OF 2 (RISK PROXIMAL DVT 2-4%) PROPHYAXIS NEEDED
[2019-03-02] MEDS ORDERED: 0.9 % SODIUM CHLORIDE 1,000 ML IV ONE ×2 (16:46→17:37)
[2019-03-02] MEDS: IPRATROPIUM/ALBUTEROL SULFATE 3 ML AMPUL.NEB NEB SCH ×2 (17:05→22:45)
[2019-03-02 17:19] VITALS: BMI 39.9
[2019-03-02] MEDS: LevoFLOXacin 750 MG/150 ML PIGGYBACK IV SCH (17:50)
[2019-03-02] MEDS ORDERED: METFORMIN HCL 1000 MG PO SCH (21:00)
[2019-03-02] MEDS ORDERED: GABAPENTIN 300 MG CAPSULE PO SCH (21:00)
[2019-03-02] MEDS ORDERED: BENZOCAINE/MENTHOL 1 EACH LOZENGE MM PRN (22:08)
[2019-03-02] MEDS: CARVEDILOL 12.5 MG TABLET PO SCH (22:38)
[2019-03-02] MEDS: FISH OIL 1,000 MG CAP PO SCH (22:38)
[2019-03-02] MEDS: metFORMIN HCl 500 MG TABLET PO SCH (22:38)
[2019-03-02] MEDS: ATORVASTATIN CALCIUM 20 MG TABLET PO SCH (22:39)
[2019-03-02] MEDS: SODIUM CHLORIDE 0.9 % (FLUSH) 10 ML DISP.SYRIN IV SCH (22:39)
[2019-03-02] MEDS: FUROSEMIDE 40 MG TABLET PO SCH (22:40)
[2019-03-02] MEDS: PATIENT OWN MED 1 EACH EACH SQ SCH (22:43)
[2019-03-03] MEDS: IPRATROPIUM/ALBUTEROL SULFATE 3 ML AMPUL.NEB NEB SCH ×6 (02:13→21:44)
[2019-03-03] MEDS: PANTOPRAZOLE SODIUM 40 MG TABLET.DR PO SCH (06:45)
[2019-03-03 07:30] LABS: BASOPHILS % 0.5 % (0.0-1.5); NEUTROPHILS # 8.3 # k/uL (1.4-7.7)
[2019-03-03 07:49] LABS: eGFR (Non-African) > 60
--- NOTE | 2019-03-03 07:56 | Diagnostic Imaging Report ---
PATIENT MR#: [id number] PATIENT PATIENT NAME: ANYA CHAMPION DATE OF : 1945 REFERRING PHYSICIAN: Juanita Ye EXAM DATE: 03/03/2019 ACCESSION NUMBER: [id number] EXAM DESCRIPTION: CHEST 2VIEW Chest, PA and lateral History: Pneumonia. Findings: Prosthetic heart valve is present. Diffuse left lung infiltrates are noted. There is no pne umothorax or pleural effusion. The heart is enlarged. Pulmonary vascularity is normal. Since March 02, 2019, no change has occurred. Impression: Left lung infiltrates, unchanged. Read by: Dr. Juvenal Cortez Transcribed by: Transcribed Date: Electronically signed by: Dr. Juvenal Cortez Date signed: 03/03/2019 7:55:05 AM
--- NOTE | 2019-03-03 08:00 | Inpatient Progress Note ---
Subjective - Required Recertification Statement I anticipate X number of days because-include discharge plan: 1 - Review of Systems Subjective: Patient feels better today but did not sleep well last night due to bed. Less SOB when up to bathroom. Coughing some phlegm. Objective - Exam Vitals and I&O: Vital Signs Temp 97.9 F 03/03/19 06:00 Pulse 84 03/03/19 06:00 Resp 20 03/03/19 06:00 BP 162/91 03/03/19 06:00 Pulse Ox 92 03/03/19 06:00 Intake & Output 03/02/19 03/02/19 03/03/19 11:59 23:59 11:59 Intake Total 600 1680 Balance 600 1680 Weight 126.099 kg 128.82 kg Intake: IV 240 480 Right Forearm 240 480 Oral 360 1200 Other: Voiding Method Toilet Toilet # Voids 1 # Bowel Movements 0 General: Alert, Oriented to Person, Oriented to Place, Oriented to Time, Cooperative, No acute distress Lungs: Rhonchi (but improved over yesterday) Cardiovascular: Regular rate - Results Results: Laboratory Results WBC 9.60 K/ul (4.00-12.00) 03/03/19 06:49 RBC 4.15 M/ul (3.90-5.20) 03/03/19 06:49 Hgb 12.0 g/dL (12.0-18.0) 03/03/19 06:49 Hct 35.6 % (37.0-53.0) L 03/03/19 06:49 MCV 86.0 fl (80.0-100.0) 03/03/19 06:49 MCH 29.0 pg (28.0-34.0) 03/03/19 06:49 MCHC 33.8 g/dL (30.0-36.0) 03/03/19 06:49 RDW 13.9 % (11.3-14.3) 03/03/19 06:49 Plt Count 157 K/mm3 (130-400) 03/03/19 06:49 Neut % (Auto) 86.3 % (39.0-79.0) H 03/03/19 06:49 Lymph % (Auto) 7.7 % (16.0-50.0) L 03/03/19 06:49 [place] % (Auto) 4.7 % (0.0-11.0) 03/03/19 06:49 Eos % (Auto) 0.8 % (0.0-6.8) 03/03/19 06:49 Baso % (Auto) 0.5 % (0.0-1.5) 03/03/19 06:49 Neut # (Auto) 8.3 # k/uL (1.4-7.7) H 03/03/19 06:49 Lymph # (Auto) 0.7 # k/uL (0.6-4.0) 03/03/19 06:49 [place] # (Auto) 0.5 # k/uL (0.0-0.9) 03/03/19 06:49 Eos # (Auto) 0.1 # k/uL (0.0-0.6) 03/03/19 06:49 Baso # (Auto) 0.1 # k/uL (0.0-0.5) 03/03/19 06:49 Sodium 141 mmol/L (137-145) 03/03/19 06:49 Potassium 4.8 mmol/L (3.5-5.1) 03/03/19 06:49 Chloride 100 mmol/L (98-107) 03/03/19 06:49 Carbon Dioxide 28 mmol/L (22-30) 03/03/19 06:49 Anion Gap 17.8 03/03/19 06:49 BUN 26 mg/dL (9-20) H 03/03/19 06:49 Creatinine 1.05 mg/dL (0.66-1.25) 03/03/19 06:49 Estimated Creat Clear 115 03/03/19 06:49 Est GFR ( Amer) > 60 (60-) 03/03/19 06:49 Est GFR (Non-Af Amer) > 60 (60-) 03/03/19 06:49 Glucose 166 mg/dL (74-106) H 03/03/19 06:49 Calcium 9.6 mg/dL (8.4-10.2) 03/03/19 06:49 Total Bilirubin 0.7 mg/dL (0.2-1.3) 03/03/19 06:49 AST 43 U/L (15-46) 03/03/19 06:49 ALT 19 U/L (4-50) 03/03/19 06:49 Alkaline Phosphatase 85 U/L (38-126) 03/03/19 06:49 NT-Pro-B Natriuret Pep 350.4 pg/mL (15.0-125.5) H 03/02/19 14:26 Total Protein 7.4 g/dL (6.3-8.2) 03/03/19 06:49 Albumin 4.4 g/dL (3.5-5.0) 03/03/19 06:49 Assessment/Plan - Assessment/Plan (1) Pneumonia Status: Acute Current Visit: Yes Qualifiers: Pneumonia type: due to unspecified organism Laterality: left Lung location: unspecified part of lung Qualified Code(s): J18.9 - Pneumonia, unspecified organism Plan: Improving. Patient 87% on RA after coming back from bathroom. Hope to get off O2 by tomorrow but he also has some home O2. Will SLIV - appetite better and don't want to fluid overload. Will continue IV zithromax today and tomorrow. Planning on discharge tomorrow. Continue levaquin as an outpatient for 7 more days - RX sent to [facility] in [place]. (2) Hypoxia Status: Acute Current Visit: Yes (3) Cardiomyopathy Status: Chronic Current Visit: No Qualifiers: Cardiomyopathy type: unspecified Qualified Code(s): I42.9 - Cardiomyopathy, unspecified (4) Diabetes mellitus Status: Chronic Current Visit: No Qualifiers: Diabetes mellitus type: type 2 Diabetes mellitus termite control service representative insulin use: with long-term use Diabetes mellitus complication status: with other specified complication Qualified Code(s): E11.69 - Type 2 diabetes mellitus with other specified complication; Z79.4 - termite control service representative (current) use of insulin Plan: Blood sugars stable less than 150. (5) Hypertension Status: Acute Current Visit: Yes
[2019-03-03] MEDS ORDERED: IPRATROPIUM/ALBUTEROL SULFATE 3 ML AMPUL.NEB NEB ONE ×2 (08:42→12:17)
[2019-03-03] MEDS ORDERED: ATORVASTATIN CALCIUM 80 MG PO SCH (09:00)
[2019-03-03] MEDS ORDERED: LISINOPRIL 10 MG TABLET PO SCH (09:00)
[2019-03-03] MEDS ORDERED: LISINOPRIL 40 MG PO SCH (09:00)
[2019-03-03] MEDS ORDERED: PANTOPRAZOLE SODIUM 40 MG TABLET.DR PO SCH (09:00)
[2019-03-03] MEDS ORDERED: ISOSORBIDE MONONITRATE 30 MG TAB.ER.24H PO SCH (09:00)
[2019-03-03] MEDS ORDERED: LISINOPRIL 20 MG TABLET PO ONE (09:44)
[2019-03-03] MEDS: CHOLECALCIFEROL (VIT-D3) 1,000 UNIT TABLET PO SCH (09:53)
[2019-03-03] MEDS: LOPERAMIDE HCL 2 MG CAPSULE PO PRN ×2 (09:53→14:25)
[2019-03-03] MEDS: ASPIRIN EC 81 MG TABLET.DR PO SCH (09:53)
[2019-03-03] MEDS: FISH OIL 1,000 MG CAP PO SCH ×2 (09:53→21:39)
[2019-03-03] MEDS: FUROSEMIDE 40 MG TABLET PO SCH ×2 (09:53→17:17)
[2019-03-03] MEDS: CLOPIDOGREL BISULFATE 75 MG TABLET PO SCH (09:53)
[2019-03-03] MEDS: amLODIPine BESYLATE 5 MG TABLET PO SCH (09:53)
[2019-03-03] MEDS: metFORMIN HCl 500 MG TABLET PO SCH ×2 (09:54→17:15)
[2019-03-03] MEDS: CARVEDILOL 12.5 MG TABLET PO SCH ×2 (09:58→21:39)
[2019-03-03] MEDS: ENOXAPARIN SODIUM 40 MG/0.4 ML DISP.SYRIN SQ SCH (09:59)
[2019-03-03] MEDS: SODIUM CHLORIDE 0.9 % (FLUSH) 10 ML DISP.SYRIN IV SCH ×2 (10:05→21:56)
[2019-03-03] MEDS ORDERED: AZITHROMYCIN 500 MG VIAL IV ONE (14:15)
[2019-03-03] MEDS ORDERED: 0.9 % SODIUM CHLORIDE 250 ML IV ONE (14:16)
[2019-03-03] MEDS: AZITHROMYCIN 500 MG in 0.9 % SODIUM CHLORIDE 250 ML IV SCH (14:24)
[2019-03-03] MEDS: LevoFLOXacin 750 MG/150 ML PIGGYBACK IV SCH (17:20)
[2019-03-03] MEDS: ATORVASTATIN CALCIUM 20 MG TABLET PO SCH (21:40)
[2019-03-03] MEDS: PATIENT OWN MED 1 EACH EACH SQ SCH ×2 (21:57→22:01)
[2019-03-04] MEDS: IPRATROPIUM/ALBUTEROL SULFATE 3 ML AMPUL.NEB NEB SCH ×4 (02:15→12:47)
[2019-03-04] MEDS: PANTOPRAZOLE SODIUM 40 MG TABLET.DR PO SCH (06:27)
--- NOTE | 2019-03-04 06:49 | Discharge Summary ---
Discharge Summary - Discharge [facility] Admission Date: 03/02/19 Discharge Date: 03/04/19 Discharge To: Home History of Present Illness: Patient noted feeling a URI coming on 2 weeks ago in [place]. About 4 days ago began with worsening cough and congestion. Very weak and fatigued. No fever, ST, ear pain. Came to ER today and noted to have 79% RA SAT and found to have a left perihilar pneumonia. He has some home O2 he uses as needed. Condition at Discharge: Stable Home Medications: Ambulatory Orders Medication Instructions Recorded Aspirin EC [Ecotrin] 81 mg PO DAILY 03/02/19 Carvedilol [Coreg] 25 mg PO BID 03/02/19 Clopidogrel Bisulfate [Plavix] 75 mg PO DAILY 03/02/19 [place]-3/Dha/Epa/Fish Oil [Fish Oil] 2,000 mg PO DAILY 03/02/19 amLODIPine BESYLATE [Norvasc] 2.5 mg PO 0900 03/02/19 Levofloxacin [Levaquin] 750 mg PO DAILY #7 tablet 03/03/19 Consultations this Visit: None Procedures this Visit: None Allergies/Adverse Reactions: Allergies Allergy/AdvReac Type Severity Reaction Status Date / Time cephalexin [Cephalexin] Allergy Mild rash Verified 03/02/19 14:25 Penicillins Allergy Verified 03/02/19 14:25 Discharge Summary: 73 year old male admitted for pneumonia; he is sitting up to the side of the bed; states that he actually slept last night for the first time in a week; he feels that he is breathing much better; denies shortness of breath; his has already picked up patients antibiotics and he knows to start tomorrow. He will receive his IV antibiotic doses this morning. Hospital Course: IVF, IV antibiotics, IV steroids, HFN tx's. - Final Diagnosis (1) Pneumonia Problems: Continue with Levaquin 750mg daily for 7 days ( has already picked up prescription) Right or Left: Right
--- NOTE | 2019-03-04 07:19 | Diagnostic Imaging Report ---
PATIENT MR#: [id number] PATIENT PATIENT NAME: ANYA CHAMPION DATE OF : 1945 REFERRING PHYSICIAN: Juanita Ye EXAM DATE: 03/04/2019 ACCESSION NUMBER: [id number] EXAM DESCRIPTION: CHEST 2VIEW HISTORY: 73-year-old male with cough, pneumonia COMPARISON: Chest x-rays dated 03/03/2019 and 04/19/2017 TECHNIQUE: 2 views of the chest were performed. FINDINGS: Patchy nodular opacities are re-identified in the left lung. No pneumothorax or pulmonary edema. The heart is not enlarged. The aortic arch is calcific. IMPRESSION: Stable patchy nodular opacities in the left lung. Read by: Dr. Jason Pandya Transcribed by: Transcribed Date: Electronically signed by: Dr. Jason Pandya Date signed: 03/04/2019 7:17:58 AM
[2019-03-04] MEDS: metFORMIN HCl 500 MG TABLET PO SCH (08:02)
[2019-03-04] MEDS: LevoFLOXacin 750 MG/150 ML PIGGYBACK IV SCH (08:03)
[2019-03-04] MEDS ORDERED: LISINOPRIL 20 MG TABLET PO SCH (09:00)
[2019-03-04] MEDS: CARVEDILOL 12.5 MG TABLET PO SCH (09:26)
[2019-03-04] MEDS: FISH OIL 1,000 MG CAP PO SCH (09:28)
[2019-03-04] MEDS: CLOPIDOGREL BISULFATE 75 MG TABLET PO SCH (09:29)
[2019-03-04] MEDS: amLODIPine BESYLATE 5 MG TABLET PO SCH (09:29)
[2019-03-04] MEDS: ENOXAPARIN SODIUM 40 MG/0.4 ML DISP.SYRIN SQ SCH (09:29)
[2019-03-04] MEDS: ASPIRIN EC 81 MG TABLET.DR PO SCH (09:29)
[2019-03-04] MEDS: CHOLECALCIFEROL (VIT-D3) 1,000 UNIT TABLET PO SCH (09:29)
[2019-03-04] MEDS: FUROSEMIDE 40 MG TABLET PO SCH (09:30)
[2019-03-04] MEDS: SODIUM CHLORIDE 0.9 % (FLUSH) 10 ML DISP.SYRIN IV SCH (09:35)
[2019-03-04] MEDS: IPRATROPIUM/ALBUTEROL SULFATE 3 ML AMPUL.NEB NEB ONE (09:35)
[2019-03-04 09:36] VITALS: BP 160/80
[2019-03-04] MEDS: AZITHROMYCIN 500 MG in 0.9 % SODIUM CHLORIDE 250 ML IV SCH (11:11)
== END 2019-03-04 13:25 | disposition home or self-care (01) | DRG 194 ==
LOC: ED 14:10 → SOUTH 14:50
PROVIDERS: ADMIT Family Medicine; ATTEND Family Medicine
DX: J18.9 Pneumonia, unspecified organism (principal); I42.0 Dilated cardiomyopathy; J96.12 Chronic respiratory failure with hypercapnia; J96.11 Chronic respiratory failure with hypoxia; Z68.41 Body mass index [BMI] 40.0-44.9, adult; J44.0 Chronic obstructive pulmonary disease with (acute) lower respiratory infection; I25.10 Atherosclerotic heart disease of native coronary artery without angina pectoris; I10 Essential (primary) hypertension; E78.5 Hyperlipidemia, unspecified; G43.909 Migraine, unspecified, not intractable, without status migrainosus; E11.9 Type 2 diabetes mellitus without complications; G47.30 Sleep apnea, unspecified; L40.9 Psoriasis, unspecified; E66.9 Obesity, unspecified; Z88.1 Allergy status to other antibiotic agents; Z88.0 Allergy status to penicillin; Z79.82 Long term (current) use of aspirin; Z79.899 Other long term (current) drug therapy; Z79.02 Long term (current) use of antithrombotics/antiplatelets; Z99.81 Dependence on supplemental oxygen; Z87.442 Personal history of urinary calculi; Z90.49 Acquired absence of other specified parts of digestive tract; Z95.2 Presence of prosthetic heart valve; Z79.4 Long term (current) use of insulin; Z87.891 Personal history of nicotine dependence
CPT/HCPCS: 36415; 80053; 83880; 85025; 87040; 93005; 94640; 94760; 96361; 96374; 99231; 99238; 99284; J0456; J1650; J1956; J2930; J7050; J7030; S1016